=== PATIENT | female | born 1950 | race Caucasian/White ===

== ENCOUNTER 2024-07-16 10:40 | Inpatient (IN) ==
--- OUTSIDE RECORDS SUMMARY | 2024-07-16 10:46 | External Medical Summary | Summary of Care ---
Author Name Unknown Organization [facility] Address [address] [place] [address] Phone [phone] Care Team Providers Care Collections Assistant Name Role Phone Hemal Bates MD Primary Care Provider [phone] Reason for Referral * Evaluate & Treat - Unlimited Visits (Within 10 days (routine)) - Authorized Specialty Diagnoses / Procedures Referred By Aaron roberto Referred To Contact Allergy & Immunology / Allergy and Immunology Diagnoses Rash and nonspecific skin eruption Jaycee Montaño CRNP [address] [place] [address] Referral ID Status Reason Start Date Expiration Date Visits Requested Visits Authorized [id number] Authorized Specialty Services Required 07/15/2024 999 999 Question Answer Referral Priority Within 10 days (routine) [facility] should this appointment be scheduled? [facility] For what condition is the patient being referred? Anaphylaxis/Angioedema/Urticaria Reason for Visit * Reason Comments Acute Pt reports that she had a dental appointment last , had a skin graft done was started on an amoxicillin. Then on Thursday she stated get very tired and fatigued. morning pt woke and noted rash all over her body that is itchy. Pt not sure if related to the antibiotic so she stopped taking on Thu. Encounter Details Date Type Department Care Team (Late st Contact Info) Description 07/15/2024 12:00 PM EDT Office Visit Family [facility] [address] [place] [address] Jaycee Montaño CRNP [address] [place] [address] Rash and nonspecific skin eruption* Allergies Active Allergy Reactions Criticality Noted Date Comments Amoxicillin Hives High 07/15/2024 documented as of this encounter (statuses as of 07/15/2024) Medications Medication Sig Dispensed Refills Start Date End Date Status loratadine (CLARITIN) 10 MG Tablet Take 1 Tablet by mouth in the morning. Active Centrum Silver 50+Women Oral Tablet Take by mouth . Active Fluticasone Propionate 50 MCG/ACT Nasal Suspension (Flonase) Administer 2 Sprays into each nostril in the morning. 16 g 3 3 Active Additional Information Patient not taking.Reported on 07/15/2024 Neomycin-Polymyx in-HC 3.5-77250-4 Otic Solution Administer 4 Drops to affected ear(s) in the morning and 4 Drops at noon and 4 Drops before bedtime for 10 days 10 mL 1 3 Active Additional Information Patient not taking.Reported on 12/15/2023 Celecoxib 100 MG Oral Capsule (CeleBREX) Take 1 Capsule by mouth in the morning. For pain. 90 Capsule 3 3 Active Additional Information Patient not taking.Reported on 07/15/2024 hydrOXYzine HCl 10 MG Oral Tablet (Atarax)Indicati ons:Rash and nonspecific skin eruption Take 1 Tablet by mouth every 8 hours as needed for Itching. 40 Tablet 4 Active Sucralfate 1 GM Oral Tablet (Carafate) Take 1 Tablet by mouth in the morning and 1 Tablet at noon and 1 Tablet in the evening and 1 Tablet before bedtime. 07/15/20 24 [facility]continued([facility] Amoxicillin 500 MG Oral Capsule (Amoxil) TAKE 1 CAPSULE BY MOUTH THREE TIMES DAILY 21 Capsule 4 07/15/20 24 Discontinued documented as of this encounter (statuses as of 07/15/2024) Active Problems Problem Noted Date Diagnosed Date Overweight (BMI 25.0-29.9) 10/03/2022 Generalized osteoarthritis 10/03/2022 Gastroesophageal reflux disease without esophagi tis 10/02/2022 Obstructive sleep apnea 10/02/2022 Overview: Mild, patient did not elect treatment ast of 01/26/2023 due to lack of symptoms associated. Dyslipidemia 11/01/2009 Overview: Per Lipid Taxonomy. documented as of this encounter (statuses as of 07/15/2024) Resolved Problems Problem Noted Date Diagnosed Date Resolved Date Obesity, Class I, BMI 30.0-3 4.9 (see actual BMI) 10/02/2022 10/03/2022 Body mass index (BMI) of 40. 0 to 44.9 in adult 09/23/2021 10/02/2022 Overview: Per Obesity protocol History of colon polyps 08/12/201908/16 History of kidney stones 08/12/2019 General medical exam 08/28/2015 019 Pruritic intertrigo 10/30/2014 08/28/20 15 Vaginitis 05/23/2014 08/26/2019 Lumbago 10/19/2013 05/23/2014 Right flank pain 09/24/2012 10/18/2013 Dermatitis 09/24/2012 09/24/2012 Dermatitis 09/24/2012 09/02/2021 Ingrown toenail 12/17/2011 05/23/2014 Cellulitis of toe 10/21/2011 05/23/2014 Arthralgia 10/21/2011 05/23/2014 Dyspnea and respiratory abnormality 01/06/2011 08/12/2019 Overview: ICD-10 update of inactive term Deviated nasal septum 01/06/20112014 Chronic rhinitis 01/06/2011 05/23/2014 Impacted cerumen 01/06/2011 05/23/2014 Chronic otitis externa 01/06/201105/23 Chronic laryngitis 01/06/2011 4 Chronic pharyngitis 01/06/2011 08/28/20 15 Reflux esophagitis 01/06/2011 5 Cough 01/06/2011 05/23/2014 Vaginitis 09/11/2010 08/28/2015 Acute bronchitis, complicated 06/21/2010 08/28/2015 Morbid obesity due to excess calories 04/30/2010 10/02/2022 Overview: Per Obesity Protocol, #19 ICD-10 update of inactive term Acute bronchitis, complicated 11/28/2009 12/31/2009 Benign neoplasm of colon 12/15/2007 Overview: adfenomatous repeat colonosocpy in 5 yrs ADVANCE DIRECTIVE INFORMATION 10/22/2006 09/02/2021 Overview: Yes, Patient instructed to provide copy of advance directive for provider to review and to be scanned into Electronic Medical Record Calculus of kidney 09/22/2003 9 PURE HYPERCHOLESTEROLEM 09/21/200210/16 Overview: Per Lipid Taxonomy. Family history of colon cancer 09/20/2001 09/02/2021 Menopause 09/25/1999 08/26/2019 Nevus, non-neoplastic 09/25/19992020 documented as of this encounter (statuses as of 07/15/2024) Immunizations Name Administration Dates Next Due COVID-19 mRNA, LNP-s, No Pre serve, 2-Dose Series (LeadFire) 03/04/2022,09/06/2021,02/02/2021,12/18 COVID-19, MRNA-LNP, 23-24, P F, 30 MCG/0.3 mL, 12 YRS AND ABOVE, IM (Prixel-Comirnat) 10/15/2023 Covid-19, Mrna, Lnp-s, Pf, B ivalent, 30 Mcg, IM, 12 yrs and above (Pfizer) 08/21/2022 Pneumococcal Conjugate Vacc, 13 Valent (Prevnar) 08/12/2017 Pneumococcal Conjugate Vacci ne, 7 Valent 05/20/2015 Pneumococcal Polysaccharide PPV23 (Pneumovax) 11/23/2018 RSV Vac., Bivalent, Perfusio n F, Pf,0.5 Ml (Abrysvo) 11/20/2023 Season Influenza, Quad, PF, Adjuvanted, 65+ Yrs, IM (FLUAD) 08/31/2020 Seasonal Influenza, PF, 6 M & above, IM , (FluLaval or Fluzone) 11/23/2018 Seasonal Influenza, Quadriva lent Hd (Fluzone Hd) 08/14/2023,08/11/2022,08/07/2021 Seasonal Influenza, Quadriva lent, No Preserve, IM 07/29/2017,10/04/2016,08/28/2015 10/04/2017 Seasonal Influenza, Trivalen t, (IIV3), with Preserv, (Fluzone) 10/30/2014,09/29/2009 Seasonal Influenza, Trivalen t, Adjuvanted, 65+ YRS, PF, (Fluad) 08/26/2019 TD - Tetanus/Diptheria (ADULT) 11/10/2007 TDAP (age 10 and older)(Boostrix) 08/12/2017 Varicella Zoster Vaccine (Adult) 05/20/2015 Zoster Vaccine Recombinant (Shingrix) 09/24/2020 ,06/08/2020 documented as of this encounter Social History Tobacco Use Types Packs/Day Years Used Date Smoking Tobacco: Never Smokeless Tobacco: Never Alcohol Use Standard Drinks/Week Comments No 0 (1 standard drink = 0.6 oz pur e alcohol) PHQ-2 Answer Date Recorded PHQ Adult Total Score 0 08/14/2023 Hunger Vital Sign Answer Date Recorded Within the past 12 months, y ou worried that your food would run out before you got the money to buy more. Never true 08/11/20 23 Within the past 12 months, t he food you bought just didn't last and you didn't have money to get more. Never true 08/11/2023 Sex and Gender Information Value Date Recorded Sex Assigned at Female 05/28/2020 3:58 PM EDT Gender Identity Female 05/28/2020 3:58 PM EDT Sexual Orientation Straight 05/28/2020 3: 58 PM EDT Job Start Date Occupation Industry Not on file Not on file Not on file documented as of this encounter Last Filed Vital Signs Vital Sign Reading Time Taken Comments Blood Pressure 122/62 07/15/2024 11:59 AM EDT Pulse 75 07/15/2024 11:59 AM EDT Temperature 36.2 C (97.2 F) 07/15/2024 11:59 AM E DT Respiratory Rate 16 07/15/2024 11:59 AM EDT Oxygen Saturation 99% 07/15/2024 11:59 AM EDT Inhaled Oxygen Concentration - - Weight - - Height - - Body Mass Index - - documented in this encounter Progress Notes * Jaycee Montaño CRNP - 07/15/2024 12:10 PM EDT Images from the original note were not included. History of Present Illness Cristina Miguel is a 74 year old female that presents for Acute ( Pt reports that she had a dental appointment last , had a skin graft done was started on an amoxicillin. Then on Thursday she stated get very tired and fatigued. morning pt woke and noted rash all over her body that is itchy. Pt not sure if related to the antibiotic so she stopped taking on Thu.) HPI Here for itchy rash all over her body with exception of face x 2 days. She was put on amox 6 days prior after dental graft and had taken for several days before rash developed. Notes for 2 days priorto rash she was very tired and achy and not feeling well and had some genralized weakness. Woke up with rash morning. Very itchy. Was raised like hives yesterday and better today. She did not take amox yesterday or today. Denies angioedema, facial swelling, dyspnea, chest pain. Current Outpatient Medications Medication Sig Dispense Refill Centrum Silver 50+Women Oral Tablet Take by mouth . loratadine (CLARITIN) 10 MG Tablet Take 1 Tablet by mouth in the morning. Abrysvo 120 MCG/0.5ML Intramuscular Solution Reconstituted (RSV Pre-Fusion F A&B Vac [facility]) Inject IM as directed (Patient not taking: Reported on 12/15/2023) 1 Each 0 Celecoxib 100 MG Oral Capsule (CeleBREX) Take 1 Capsule by mouth in the morning. For pain. (Patientnot taking: Reported on 07/15/2024) 90 Capsule 3 Fluticasone Propionate 50 MCG/ACT Nasal Suspension (Flonase) Administer 2 Sprays into each nostril in the morning. (Patient not taking: Reported on 07/15/2024) 16 g 3 Kigwtfqr-Mibccolbh-AG 3.5-04471-2 Otic Solution Administer 4 Drops to affected ear(s) in the morning and 4 Drops at noon and 4 Drops before bedtime for 10 days (Patient not taking: Reported on 12/15/2023) 10 mL 1 No current facility-administered medications for this visit. Physical Exam Vitals: 07/15/24 1159 Temp: 36.2 C (97.2 F) Pulse: 75 Resp: 16 SpO2: 99% BP: 122/62 Physical Exam Vitals reviewed. Constitutional: General: She is not in acute distress. HENT: Head: Normocephalic and atraumatic. Nose: Nose normal. Mouth/Throat: Mouth: Mucous membranes are moist. Comments: No swelling Eyes: Extraocular Movements: Extraocular movements intact. Conjunctiva/sclera: Conjunctivae normal. Pupils: Pupils are equal, round, and reactive to light. Cardiovascular: Rate and Rhythm: Normal rate and regular rhythm. Heart sounds: Normal heart sounds. Pulmonary: Effort: Pulmonary effort is normal. Breath sounds: Normal breath sounds. Abdominal: General: Bowel sounds are normal. Palpations: Abdomen is soft. Musculoskeletal: Cervical back: Neck supple. Right lower leg: No edema. Left lower leg: No edema. Lymphadenopathy: Cervical: No cervical adenopathy. Skin: General: Skin is warm and dry. Capillary Refill: Capillary refill takes less than 2 seconds. Findings: Rash (diffuse confluent macules over arms, legs, abdomen, back, chest (photos in scans)) present. Neurological: General: No focal deficit present. Mental Status: She is alert and oriented to person, place, and time. Psychiatric: Behavior: Behavior normal. Thought Content: Thought content normal. Assessment and Plan Rash and nonspecific skin eruption Stop amox - added to allergy list Possible she had viral illness preceding rash Will have her follow up with allergy given severity of rash/hives Photo in scans Follow up 07/19 to make sure it is resolving Discussed indications for ER - hydrOXYzine HCl 10 MG Oral Tablet (Atarax); Take 1 Tablet by mouth every 8 hours as needed for Itching. - ALLERGY REFERRAL OP Wrap-Up Follow-up: Return in about 4 days (around 07/19/2024), or if symptoms worsen or fail to improve. | Check-out note: Recheck 07/19 with me Also schedule allergy Time: I spent a total of 20-29 minutes (exact time 20 mins) on the date of service in preparation, delivery, and documentation of the care provided to Cristina Miguel excluding any time spent in the performance of separately billed services. documented in this encounter Plan of Treatment Upcoming Encounters Date Type Department Care Team (Late st Contact Info) Description 07/19/2024 11:20 AM EDT Office Visit Family Practice [facility] [address] [facility] [address] Jayece Monta[facility] CR[facility] [address] [facility] [address] 07/29/2024 10:00 AM EDT Office Visit Allergy/Immunology [facility] [address] [place] [address] Ruslan Bolaños MD [address] [place] [address] [place] [address] 08/16/2024 8:30 AM EDT Nurse Only Ancillary [facility] [address] [place] [address] [facility], Nurse Annual Wellness [address] [place] [address] 10/14/2024 8:15 AM EST Office Visit Dermatology [facility] [address] [facility] [place] [address] Tj Shine MD [address] [facility] [place] [address] 06/19/2025 9:30 AM EDT Imaging Radiology [facility] 1st [facility] [address] [facility] [place] [address] Scheduled Procedures Name Priority Associated Diagnoses Date/Ti me COLONOSCOPY FLEXIBLE PROXIMA L DIAGNOSTIC Recall History of colonic polyps Scheduled Referrals Name Type Priority Associated Diagnoses Orde r Schedule ALLERGY REFERRAL OP Referral Within 10 da ys (routine) Rash and nonspecific skin eruption Ordered: 07/15/2024 Health Maintenance Due Date Last Done Comments Cologuard 1997 Fecal Occult Blood Test 1997 Sigmoidoscopy 1997 COVID-19 Vaccine ( season) 2024 10/15/2023, 08/21/2022, 03/04/2022, Additional history exists Influenza Vaccine (FLU shot) (#1) 2024 08/14/2023, 08/11/2022, 08/07/2021, Additional history exists Adult Wellness Visit 08/14/2024 08/14/2023, 08/11/2022, 08/07/2021 Depression Screening 08/14/2024 08/14/2023 Lipid Panel 08/26/2024 08/26/2019, 08/16, 12/04/2008, Additional history exists Mammogram 06/16/2025 06/16/2024, 04/18, 05/15/2023, Additional history exists Colonoscopy 12/23/2026 12/23/2023, 05/2024, 12/14/2020, Additional history exists Colorectal Cancer Screening 12/23/2026 DXA Scan 03/25/2027 03/25/2018 DTap/Tdap Vaccines (2 - Td or Tdap) 08/12/2027 08/12/2017, 11/10/2007 Pneumococcal Vaccine: 65+ Years Completed 11/23/2018, 08/12/2017 Zoster Vaccines Completed 09/24/2020, 05/17, 05/20/2015 RETIRED - COLONOSCOPY-ANNUAL AGES 18-100 Discontinued 12/23/2023, 12/23/2023, 12/14/2020, Additional history exists HPV (Gardasil) Vaccine Aged Out No lo nger eligible based on patient's age to complete this topic Hepatitis B Vaccine Aged Out No longe r eligible based on patient's age to complete this topic MENINGOCOCCAL (MENACTRA/MENVEO) Aged Out No longer eligible based on patient's age to complete this topic documented as of this encounter Medical Devices Implanted Type Area Human Resources Trainee Device Identifier Shelf Expiration Date Model / Serial / Lot Clip Quick 2.8mm 230cm - [id number] Implanted:Qty: 2 on 10/07/2019 by Sukhjinder Webster MD at [facility] [employer] 03/15/2022 [id number]-202UR.[id number] / / Hemostasis 2.8cm [id number] Clip Rotation Repositioning - [id number] Implanted:Qty: 2 on 12/23/2023 by Sukhjinder Webster MD at [facility] N/A: Colon MICRO TECH ENDOSCOPY 11/27/2024 [id number] / / [id number] documented as of this encounter Visit Diagnoses Diagnosis Rash and nonspecific skin eruption- Primary Rash and other nonspecific skin eruption documented in this encounter Advance Directives Documents on File Type Date Recorded Patient Binder Fixer Expl anation Advance Directives and Shraddha whittington Will 12/18/2005 ADVANCE DIRECTIVE Care Teams Collections Assistant Relationship Specialty Start Date End Date Hemal Bates MD [address] [place] [address] PCP - General Family Medicine 04/01/21 documented as of this encounter"
--- OUTSIDE RECORDS SUMMARY | 2024-07-16 10:46 | External Medical Summary | Summary of Care ---
Author Name Unknown Organization [facility] Address [address] [facility] [address] Phone [phone] Care Team Providers Care Operations Vice President Name Role Phone Hemal Bates MD Primary Care Provider [phone] Reason for Visit * Reason Onset Date Comments Side Effects of Medications 07/14/2024 Encounter Details Date Type Department Care Team (Late st Contact Info) Description 07/14/2024 Telephone Family Practice [facility] [address] [place] [address] Hemal Bates MD [address] [place] [address] Side Effects of Medications Allergies Active Allergy Reactions Criticality Noted Date Comments No Known Drug Allergy 09/25/2004 documented as of this encounter (statuses as of 07/14/2024) Medications Medication Sig Dispensed Refills Start Date End Date Status loratadine (CLARITIN) 10 MG Tablet Take 1 Tablet by mouth in the morning. Active Centrum Silver 50+Women Oral Tablet Take by mouth . Active Fluticasone Propionate 50 MCG/ACT Nasal Suspension (Flonase) Administer 2 Sprays into each nostril in the morning. 16 g 3 10/09/2023 Active Neomycin-Polymyxin -HC 3.5-15540-3 Otic Solution Administer 4 Drops to affected ear(s) in the morning and 4 Drops at noon and 4 Drops before bedtime for 10 days 10 mL 1 10/09/2023 Active Additional Information Patient not taking.Reported on 12/15/2023 Celecoxib 100 MG Oral Capsule (CeleBREX) Take 1 Capsule by mouth in the morning. For pain. 90 Capsule 3 10/09/2023 Active Sucralfate 1 GM Oral Tablet (Carafate) Take 1 Tablet by mouth in the morning and 1 Tablet at noon and 1 Tablet in the evening and 1 Tablet before bedtime. Active Amoxicillin 500 MG Oral Capsule (Amoxil) TAKE 1 CAPSULE BY MOUTH THREE TIMES DAILY 21 Capsule 07/07/2024 Active documented as of this encounter (statuses as of 07/14/2024) Active Problems Problem Noted Date Diagnosed Date Overweight (BMI 25.0-29.9) 10/03/2022 Generalized osteoarthritis 10/03/2022 Gastroesophageal reflux disease without esophagi tis 10/02/2022 Obstructive sleep apnea 10/02/2022 Overview: Mild, patient did not elect treatment ast of 01/26/2023 due to lack of symptoms associated. Dyslipidemia 11/01/2009 Overview: Per Lipid Taxonomy. documented as of this encounter (statuses as of 07/14/2024) Resolved Problems Problem Noted Date Diagnosed Date [...] as of this encounter (statuses as of 07/14/2024) Immunizations Name Administration Dates Next Due COVID-19 mRNA, LNP-s, No Pre serve, 2-Dose Series (bMobilized) 03/04/2022,09/06/2021,02/02/2021,12/18 COVID-19, MRNA-LNP, 23-24, P F, 30 MCG/0.3 mL, 12 YRS AND ABOVE, IM (PFIZER-Comirnaty) 10/15/2023 Covid-19, Mrna, Lnp-s, Pf, B ivalent, [...] No Preserve, IM 07/29/2017,10/04/2016,08/28/2015 10/04/2017 Seasonal Influenza, Split, I IV3, With Preserve, Inj 10/30/2014,09/29/2009 Seasonal Influenza, Trivalen t, Adjuvanted, 65+ yrs 08/26/2019 TD - Tetanus/Diptheria (ADULT) 11/10/2007 TDAP [...] on file documented as of this encounter Miscellaneous Notes * Telephone Encounter - Tamanna Pang RPh - 07/14/2024 9:15 AM EDT Pt calling with side effects from amoxicillin Amoxicillin not prescribed by PCP. Was from outside dentist. Pt developed a rash so she stopped medication. Advised pt to contact dentist to make aware that she stopped medication as they may want to prescribe something else. Also advised can try OTC hydrocortisone cream if rash is itchy or benadryl. Counseled that benadrylwill make drowsy. Pt verbalized understanding and will contact dentist. Will call back if rash gets worse for appt. Thanks, Tamanna Pang, PharmD Clinical Pharmacist [facility] [phone] 07/14/2024 9:20 AM * Telephone Encounter - Nata Toledo PHARM Tech - 07/14/2024 9:12 AM EDT Patient called in with side effects from Amoxicillin 500 MG Oral Capsule (Amoxil) . Warm transferred to [facility] for consultation. Thank you, Nata Toledo Dressage Judge I [facility] 07/14/2024,9:13 AM documented in this encounter Plan of Treatment Upcoming Encounters Date Type Department Care Team (Late st Contact Info) Description 08/16/2024 8:30 AM EDT Nurse Only Ancillary [facility] [address] [facility] [place] [address] [facility], Nurse [facility] Wellness [facility] [address] [facility] [place] [address] 10/14/2024 8:15 AM EST Office Visit Dermatology [facility] [address] [place] [address] Tj Shine MD [address] [place] [address] 06/19/2025 9:30 AM EDT Imaging Radiology [facility] 1st [facility] [address] [place] [address] Scheduled Procedures Name Priority Associated Diagnoses Date/Ti me COLONOSCOPY FLEXIBLE PROXIMA L DIAGNOSTIC Recall History of colonic polyps Health Maintenance Due Date Last Done Comments [...] this encounter Medical Devices Implanted Type Area Utility Plant Operative Device Identifier Shelf Expiration Date Model / Serial / Lot Clip Quick 2.8mm 230cm - [id number] Implanted:Qty: 2 on 10/07/2019 by Sukhjinder Webster MD at ENDOSCOPY [facility] [employer] 03/15/2022 [id number]-[id number] / / Hemostasis 2.8cm [id number] Clip Rotation Repositioning - [id number] Implanted:Qty: 2 on 12/23/2023 by Sukhjinder Webster MD at ENDOSCOPY [facility] N/A: Colon MICRO TECH ENDOSCOPY 11/27/2024 [id number] / / [id number] documented as of this encounter Advance Directives Documents on File Type Date Recorded Patient Dust Box Tender Expl anation Advance Directives and Livin g Will 12/18/2005 ADVANCE DIRECTIVE Care Teams Operations Vice President Relationship Specialty Start Date End Date Hemal Bates MD [address] [place] [address] PCP - General Family Medicine 04/01/21 documented as of this encounter
--- OUTSIDE RECORDS SUMMARY | 2024-07-16 10:46 | External Medical Summary | Summary of Care ---
Author Name Unknown Organization [facility] Address [address] [facility] [place] [address] Phone [phone] Care Team Providers Care Branch Manager Trainee Name Role Phone Hemal Bates MD Primary Care Provider [phone] [phone] Reason for Visit * Reason Onset Date Comments Side Effects of Medications 07/14/2024 Encounter Details Date Type Department Care Team (Late st Contact Info) Description 07/14/2024 Telephone Family Practice [facility] [address] [place] [address] Hemal Bates MD [address] [place] [address] Side Effects of Medications Allergies Active Allergy [...] Additional Information Patient not taking.Reported on 07/15/2024 Neomycin-Polymy alina-HC 3.5-05547-4 Otic Solution Administer 4 Drops to affected [...] Additional Information Patient not taking.Reported on 07/15/2024 Sucralfate 1 GM Oral Tablet (Carafate) Take 1 Tablet by mouth in the morning and 1 Tablet at noon and 1 Tablet in the evening and 1 Tablet before bedtime. 07/15/20 24 Discontinued([facility] List Clean Up) Amoxicillin 500 MG Oral [...] mRNA, LNP-s, No Pre serve, 2-Dose Series ([employer] 03/04/2022,09/06/2021,02/02/2021,12/18 COVID-19, MRNA-LNP, 23-24, P F, 30 MCG/0.3 mL, 12 YRS AND ABOVE, IM ([facility] 10/15/2023 Covid-19, Mrna, Lnp-s, Pf, B ivalent, 30 Mcg, IM, 12 yrs and above (Pfizer) 08/21/2022 Pneumococcal Conjugate Vacc, 13 Valent (Prevnar) 08/12/2017 Pneumococcal Conjugate Vacci ne, 7 Valent 05/20/2015 Pneumococcal Polysaccharide PPV23 (Pneumovax) 11/23/2018 RSV Vac., Bivalent, Perfusio n F, Pf,0.5 Ml (Abrysvo) 11/20/2023 Season Influenza, Quad, PF, Adjuvanted, 65+ Yrs, IM (FLUAD) 08/31/2020 Seasonal Influenza Virus Vac cine, Unspecified Formulation 09/11/1998 09/11/1999 Seasonal Influenza, PF, 6 M & above, IM , (FluLaval or Fluzone) 11/23/2018 Seasonal Influenza, Quadriva lent Hd (Fluzone Hd) 08/14/2023,08/11/2022,08/07/2021 Seasonal Influenza, Quadriva lent, No Preserve, IM 07/29/2017,10/04/2016,08/28/2015 10/04/2017 Seasonal Influenza, Trivalen t, (IIV3), with Preserv, (Fluzone) 10/30/2014,09/29/2009,09/22/2003,09/16,10/20/2001,09/12/1999 Seasonal Influenza, Trivalen t, Adjuvanted, 65+ YRS, [...] encounter Miscellaneous Notes * Telephone Encounter - Mallorie Evans RP - 07/15/2024 3:09 PM EDT Pt calling to see if she should take Hydroxyzine with food. Advised can take with out without, recommend to take with if sensitive stomach. Advised against epsom salt bath, recommended colloidal oatmeal bath. Pt states her saw her shake, not shaking now. Advised to monitor and call back if continued. Counseled patient to call back with no improvement or worsening symptoms. Thank you, Mallorie Evans, PharmD, NADINE Clinical Pharmacist [facility] 07/15/24 3:10 PM [phone] * Telephone Encounter - Tamanna Pang RP - 07/14/2024 9:15 AM EDT Pt calling [...] Clinical Pharmacist [facility]) [phone] 07/14/2024 9:20 AM * Telephone Encounter - Nata Toledo PHARM Tech - 07/14/2024 9:12 AM EDT Patient called in with side effects from Amoxicillin 500 MG Oral Capsule (Amoxil) . Warm transferred to [facility] for consultation. Thank you, Nata Toledo Death Claim Clerk I [facility]) 07/14/2024,9:13 AM documented in this encounter Plan of Treatment Upcoming Encounters Date Type Department Care Team (Late st Contact Info) Description 07/19/2024 11:20 AM EDT Office Visit Family Practice [facility] 132 [facility] [place] [address] Jaycee Montaño CRNP [facility] [address] 07/29/2024 10:00 AM EDT Office Visit Allergy/Immunology [facility] [address] [facility] [place] [address] Ruslan Bolaños MD [address] [facility] [place] [address] 08/16/2024 8:30 AM EDT Nurse Only Ancillary [facility] 132 [facility] [place] [address] Sam, Nurse Annual Wellness [facility] 132 [facility] [place] [address] 10/14/2024 8:15 AM EST Office Visit Dermatology [facility] [address] [facility] [place] [address] Tj Shine MD [address] [place] [address] 06/19/2025 9:30 AM EDT Imaging Radiology [address], [place] [address] [place] [address] Scheduled Procedures Name Priority Associated Diagnoses Date/Ti [...] this encounter Medical Devices Implanted Type Area Buggy Man Device Identifier Shelf Expiration Date Model / Serial / Lot Clip Quick 2.8mm 230cm - [id number] Implanted:Qty: 2 on 10/07/2019 by Sukhjinder Webster MD at ENDOSCOPY [facility] [employer] 03/15/2022 HX-202UR.A / / Hemostasis 2.8cm [id number] Clip Rotation Repositioning - [id number] Implanted:Qty: 2 on 12/23/2023 by Sukhjinder Webster MD at ENDOSCOPY [facility] N/A: Colon MICRO TECH ENDOSCOPY 11/27/2024 [id number] / / [id number] documented as of this encounter Advance Directives Documents on File Type Date Recorded Patient Rivet Flunky Expl anation Advance Directives and Livin g Will 12/18/2005 ADVANCE DIRECTIVE Care Teams Branch Manager Trainee Relationship Specialty Start Date End Date Hemal Bates MD [address] [place] [address] PCP - General Family Medicine 04/01/21 documented as of this encounter
--- OUTSIDE RECORDS SUMMARY | 2024-07-16 10:46 | External Medical Summary | Summary of Care ---
Author Name Unknown Organization [facility] Address [address] [facility] [place] [address] Phone [phone] Care Team Providers Care Food Writer Name Role Phone Hemal Bates MD Primary Care Provider [phone] Reason for Visit * Reason Onset Date Comments Other 02/03/2024 Encounter Details Date Type Department Care Team (Late st Contact Info) Description 02/03/2024 Telephone Family Practice [facility] [address] [place] [address] Hemal Bates MD [address] [place] [id number] Other Allergies Active Allergy Reactions Criticality Noted Date Comments No Known Drug Allergy 09/25/2004 documented as of this encounter (statuses as of 02/03/2024) Medications Medication Sig Dispensed Refills Start Date End Date Status loratadine (CLARITIN) 10 MG Tablet Take 1 Tablet by mouth in the morning. 0 Active Centrum Silver 50+Women Oral Tablet Take by mouth . 0 Active Fluticasone Propionate 50 MCG/ACT Nasal Suspension (Flonase) Administer 2 Sprays into each nostril in the morning. 16 g 3 10/09/2023 Active Neomycin-Polymyxin -HC 3.5-26366-7 Otic Solution Administer 4 Drops to affected [...] the evening and 1 Tablet before bedtime. 0 Active documented as of this encounter (statuses as of 02/03/2024) Active Problems Problem Noted Date Diagnosed Date Overweight (BMI 25.0-29.9) 10/03/2022 Generalized osteoarthritis 10/03/2022 Gastroesophageal reflux disease without esophagi tis 10/02/2022 Obstructive sleep apnea 10/02/2022 Overview: Mild, patient did not elect treatment ast of 01/26/2023 due to lack of symptoms associated. Dyslipidemia 11/01/2009 Overview: Per Lipid Taxonomy. documented as of this encounter (statuses as of 02/03/2024) Resolved Problems Problem Noted Date Diagnosed Date [...] as of this encounter (statuses as of 02/03/2024) Immunizations Name Administration Dates Next Due COVID-19 mRNA, LNP-s, No Pre serve, 2-Dose Series ([employer]) 03/04/2022,09/06/2021,02/02/2021,12/18 COVID-19, MRNA-LNP, 23-24, P F, 30 [...] encounter Miscellaneous Notes * Telephone Encounter - Shanti Echols OSA - 02/03/2024 12:52 PM EDT Pt would like all images from 10-09-2023 (x-ray) put on a CD and she will pick it up. She is going to a chiro 01-11. They would also like the reports. Please call when done documented in this encounter Plan of Treatment Upcoming Encounters Date Type Department Care Team (Late st Contact Info) Description 06/16/2024 9:00 AM EDT Imaging Radiology [facility] [address] [place] [address] 08/16/2024 8:30 AM EDT Nurse Only Ancillary [address] [place] [address] [facility], Nurse Annual Wellness [address] [place] [address] 10/14/2024 8:15 AM EST Office Visit Dermatology [facility] 200 [facility] [place] [address] Tj Shine MD 200 [facility] [place] [address] Scheduled Procedures Name Priority Associated Diagnoses Date/Ti me COLONOSCOPY FLEXIBLE PROXIMA L DIAGNOSTIC Recall History of colonic polyps Health Maintenance Due Date Last Done Comments Mammogram 05/15/2024 05/15/2023, 10/16, 05/14/2022, Additional history exists Depression Screening 08/14/2024 08/14/2023 Lipid Panel 08/26/2024 08/26/2019, 08/16, 12/04/2008, Additional history exists COLONOSCOPY-EVERY 3 YRS AGES 18-100 12/23/2026 12/23/2023, 12/23/2023, 12/14/2020, Additional history exists DXA Scan 03/25/2027 03/25/2018 DTaP,Tdap,and Td Vaccines (2 - Td or Tdap) 08/12/2027 08/12/2017, 11/10/2007 Pneumococcal Vaccine: 65+ Years Completed 11/23/2018, 08/12/2017 Zoster Vaccines Completed 09/24/2020, 05/17, 05/20/2015 Influenza Vaccine (FLU shot) Completed 08/14/2023, 08/11/2022, 08/07/2021, Additional history exists COVID-19 Vaccine Completed 10/15/2023, 04/2022, 03/04/2022, Additional history exists COLONOSCOPY-ANNUAL AGES 18-100 Discontinued 12/23/2023, 12/23/2023, 12/14/2020, Additional history exists GARDASIL-HPV IMMUNIZATION SERIES Aged Out No longer eligible based on patient's age to complete this topic Hepatitis B Aged Out No longer eligi ble based on patient's age to complete this topic MENINGOCOCCAL (MENACTRA/MENVEO) Aged Out No longer eligible based on patient's age to complete this topic documented as of this encounter Medical Devices Implanted Type Area Uniform Maker Device Identifier Shelf Expiration Date Model / Serial / Lot Clip Quick 2.8mm 230cm - [id number] Implanted:Qty: 2 on 10/07/2019 by Sukhjinder Webster MD at ENDOSCOPY [facility] [employer] 03/15/2022 HX-202UR.A / / Hemostasis 2.8cm [id number] Clip Rotation Repositioning - [id number] Implanted:Qty: 2 on 12/23/2023 by Sukhjinder Webster MD at ENDOSCOPY [facility] N/A: Colon MICRO TECH ENDOSCOPY 11/27/2024 [id number] / / [id number] documented as of this encounter Advance Directives Documents on File Type Date Recorded Patient Risk Control Manager Expl anation Advance Directives and Livin g Will 12/18/2005 ADVANCE DIRECTIVE Care Teams Food Writer Relationship Specialty Start Date End Date Hemal Bates MD [address] [place] [address] PCP - General Family Medicine 04/01/21 documented as of this encounter
--- OUTSIDE RECORDS SUMMARY | 2024-07-16 10:46 | External Medical Summary | Summary of Care ---
Author Name Unknown Organization [facility] Address [address] [facility] [place] [address] Phone [phone] Care Team Providers Care Bilingual Interpreter Name Role Phone Hemal Bates MD Primary Care Provider [phone] Reason for Visit * Reason Onset Date Comments Other 02/03/2024 Encounter Details Date Type Department Care Team (Late st Contact Info) Description 02/03/2024 Telephone Family Practice [facility] [address] [place] [address] Hemal Bates MD [address] [place] [id number] Other Allergies Active Allergy Reactions Criticality Noted Date Comments No Known Drug Allergy 09/25/2004 documented as of this encounter (statuses as of 02/04/2024) Medications Medication Sig Dispensed Refills Start Date End Date Status loratadine (CLARITIN) 10 MG Tablet Take 1 Tablet by mouth in the morning. 0 Active Centrum Silver 50+Women Oral Tablet Take by mouth . 0 Active Fluticasone Propionate 50 MCG/ACT Nasal Suspension (Flonase) Administer 2 Sprays into each nostril in the morning. 16 g 3 10/09/2023 Active Neomycin-Polymyxin -HC 3.5-24064-7 Otic Solution Administer 4 Drops to affected [...] as of this encounter (statuses as of 02/04/2024) Active Problems Problem Noted Date Diagnosed Date Overweight (BMI 25.0-29.9) 10/03/2022 Generalized osteoarthritis 10/03/2022 Gastroesophageal reflux disease without esophagi tis 10/02/2022 Obstructive sleep apnea 10/02/2022 Overview: Mild, patient did not elect treatment ast of 01/26/2023 due to lack of symptoms associated. Dyslipidemia 11/01/2009 Overview: Per Lipid Taxonomy. documented as of this encounter (statuses as of 02/04/2024) Resolved Problems Problem Noted Date Diagnosed Date [...] as of this encounter (statuses as of 02/04/2024) Immunizations Name Administration Dates Next Due COVID-19 mRNA, LNP-s, No Pre serve, 2-Dose Series ([employer]) 03/04/2022,09/06/2021,02/02/2021,12/18 COVID-19, MRNA-LNP, 23-24, P F, 30 [...] Influenza, Split, I IV3, With Preserve, Inj 10/30/2014,09/29/2009,09/22/2003,09/16,10/20/2001,09/12/1999 Seasonal Influenza, Trivalen t, Adjuvanted, 65+ yrs [...] encounter Miscellaneous Notes * Telephone Encounter - Cayla Gordillo OSA - 02/04/2024 3:44 PM EDT Disc(s) with imaging and reports prepared per request and placed at the [facility] Radiology/Family Practice [employer]. Patient notified via voicemail that the information is ready for pickup and can do so Mon-Fri from 8 am to 5 pm. Patient Right of Access form ready for signature at time of pickup. * Telephone Encounter - Shanti Echols OSA [...] Description 06/16/2024 9:00 AM EDT Imaging Radiology [facility] 1st Floor, [place] 132 [facility] [place] [address] 08/16/2024 8:30 AM EDT Nurse Only Ancillary [facility] 132 [facility] [place] [address] [facility], Nurse Annual Wellness [address] [place] [address] 10/14/2024 8:15 AM EST Office Visit Dermatology [facility] [address] [place] [address] Tj Shine MD [address] [place] [address] Scheduled Procedures Name Priority Associated Diagnoses Date/Ti [...] this encounter Medical Devices Implanted Type Area Dental Claims Processor Device Identifier Shelf Expiration Date Model / Serial / Lot Clip Quick 2.8mm 230cm - [id number] Implanted:Qty: 2 on 10/07/2019 by Sukhjinder Webster MD at ENDOSCOPY [facility] [employer] 03/15/2022 HX-202UR.A / / Hemostasis 2.8cm [id number] Clip Rotation Repositioning - [id number] Implanted:Qty: 2 on 12/23/2023 by Sukhjinder Webster MD at ENDOSCOPY [facility] N/A: Colon MICRO TECH ENDOSCOPY 11/27/2024 [id number] / / [id number] documented as of this encounter Advance Directives Documents on File Type Date Recorded Patient Order Clerk Expl anation Advance Directives and Livin g Will 12/18/2005 ADVANCE DIRECTIVE Care Teams Bilingual Interpreter Relationship Specialty Start Date End Date Hemal Bates MD [address] [place] [address] PCP - General Family Medicine 04/01/21 documented as of this encounter
--- OUTSIDE RECORDS SUMMARY | 2024-07-16 10:46 | External Medical Summary | Summary of Care ---
Author Name Unknown Organization [facility] Address [address] [facility] [place] [address] Phone [phone] Care Team Providers Care Accounting Director Name Role Phone Hemal Bates MD Primary Care Provider [phone] [phone] Reason for Visit * Reason Onset Date Comments Other 02/03/2024 Encounter Details Date Type Department Care Team (Late st Contact Info) Description 02/03/2024 Telephone Family Practice [facility] [address] [place] [address] Hemal Bates MD [address] [place] [phone] Other Allergies Active Allergy Reactions Criticality Noted [...] 16 g 3 10/09/2023 Active Neomycin-Polymyxin -HC 3.5-03018-8 Otic Solution Administer 4 Drops to affected [...] mRNA, LNP-s, No Pre serve, 2-Dose Series ([employer]) 03/04/2022,09/06/2021,02/02/2021,12/18 COVID-19, MRNA-LNP, 23-24, P F, 30 [...] Gordillo OSA - 02/04/2024 3:44 PM EDT Left voicemail with my direct line phone number ([phone]) and message to please return call jonathan scheduled. * Telephone Encounter - Shanti Echols OSA [...] Description 06/16/2024 9:00 AM EDT Imaging [facility] 132 [facility] [place] [address] 08/16/2024 8:30 AM EDT [facility] 132 [facility] [place] [address] Sam Nurse Annual Wellness [address] [place] [address] 10/14/2024 8:15 AM EST Office [facility] [address] [place] [address] Tj Shine MD [address] [place] [address] [place] [address] Scheduled Procedures Name Priority Associated Diagnoses Date/Ti [...] this encounter Medical Devices Implanted Type Area Customer Service Administrator Device Identifier Shelf Expiration Date Model / Serial / Lot Clip Quick 2.8mm 230cm - [id number] Implanted:Qty: 2 on 10/07/2019 by Sukhjinder Webster MD at ENDOSCOPY [facility] [email or web address] [facility] 03/15/2022 HX-202UR.A / / Hemostasis 2.8cm [id number] Clip Rotation Repositioning - [id number] Implanted:Qty: 2 on 12/23/2023 by Sukhjinder Webster MD at ENDOSCOPY [facility] N/A: Colon MICRO TECH ENDOSCOPY 11/27/2024 [id number] / / [id number] documented as of this encounter Advance Directives Documents on File Type Date Recorded Patient Systems Planner Expl anation Advance Directives and Livin g Will 12/18/2005 ADVANCE DIRECTIVE Care Teams Accounting Director Relationship Specialty Start Date End Date Hemal Bates MD [address] [place] [address] PCP - General Family Medicine 04/01/21 documented as of this encounter
[2024-07-16 11:34] LABS: Hematocrit (blood only) 40.6 % (37.0-47.0); Hemoglobin 14.1 g/dl (12.0-16.0); Mean Corpuscular Hemoglobin 29.4 pg (25.0-34.0); Mean Corpuscular Hgb Conc 34.7 g/dL (32.0-36.0); Mean Corpuscular Volume 84.6 fL (80.0-100.0); Platelet Count 217 K/uL (130-400); RDW Coefficient of Variation 12.3 % (11.5-14.5); RDW Standard Deviation 38.3 fL (36.4-46.3); White Blood Count 7.47 K/ul (4.8-10.8)
--- NOTE | 2024-07-16 11:41 | CT Scan Report ---
CT OF THE HEAD WITHOUT CONTRAST CLINICAL HISTORY: Confusion. COMPARISON STUDY: No previous studies for comparison. CT DOSE: 875.56 mGy.cm TECHNIQUE: Helical axial images of the head were obtained without IV contrast. Automated exposure con trol was utilized for the study. A dose lowering technique was utilized adhering to the principles o f ALARA. FINDINGS: No acute intracranial hemorrhage, midline shift or mass effect is present. The ventricular system is unremarkable. The basal cisterns are patent. No extra-axial collections are present. There are no findings to suggest acute dural sinus thrombosis or acute territorial infarct. No significant calvarial abnormalities are present. Visualized portions of the sinuses and mastoid air cells are isac ar. IMPRESSION: No acute intracranial findings. ACT 112: Negative or not required by law. Electronically signed by: Denton Espinosa M.D. 07/16/2024 11:39 AM
[2024-07-16 11:48] LABS: Alanine Aminotransferase 15 U/L (7-52); Albumin Globulin Ratio 1.3 (0.9-2); Albumin Level 4.2 gm/dl (3.4-5.0); Alkaline Phosphatase 48 U/L (34-104); Anion Gap 10 (3-11); Aspartate Aminotransferase 28 U/L (13-39); BUN Creatinine Ratio 22.2 (10-20); Bilirubin,Total 0.8 mg/dl (0.2-1.0); Blood Urea Nitrogen 22 mg/dl (6-23); Calcium 9.4 mg/dl (8.6-10.3); Carbon Dioxide 24 mmol/L (21-32); Chloride 103 mmol/L (98-107); Est GFR (Non-African American) 56.9 ml/min; Globulin 3.2 gm/dl (2.5-4.0); Glucose 94 mg/dl (70-99(Fasting)); Potassium 3.5 mmol/L (3.5-5.1); Sodium 137 mmol/L (136-145); Total Protein 7.4 gm/dl (6.0-8.3)
[2024-07-16 11:54] LABS: Basophils # (auto) 0.03 K/uL (0.00-0.20); Basophils % (auto) 0.4 %; Eosinophils # (auto) 0.21 K/uL (0.00-0.50); Eosinophils % (auto) 2.8 %; Immature Granulocytes # (auto) 0.01 K/uL (0.01-0.20); Immature Granulocytes % (auto) 0.1 %; Lymphocytes # (auto) 2.46 K/uL (1.20-3.40); Lymphocytes % (auto) 32.9 %; Monocytes # (auto) 0.53 K/uL (0.11-0.59); Monocytes % (auto) 7.1 %; Neutrophils # (auto) 4.23 K/uL (1.40-6.50); Neutrophils % (auto) 56.7 %; Troponin I High Sensitivity 27.1 pg/ml (0-14)
[2024-07-16 12:01] LABS: Partial Thromboplastin Time 28 Seconds (21-31)
--- NOTE | 2024-07-16 12:40 | Emergency Department Note ---
Impression & Plan Confusion, Elevated troponin ED Provider Note NAME: MARQUISE MORSE AGE: 74 SEX: F : 1950 ARRIVES VIA: Walk-In INFORMANT: Patient, ED PROVIDER(S): Andrew Meyer MD CHIEF COMPLAINT: Confusion HPI: This is a 74-year-old female presented for confusion. Patient is brought in by her and daughter. Patient states that she recently had a skin graft in her mouthand amoxicillin. She began having rash over the past few days. She stopped taking the amoxicillin patient is given 1 pill of hydroxyzine yesterday by her PCP. noted that over the past 1 day she is also been having slight confusion, lethargy. Yesterday she was on her laptop that was turned off. She is tempted to use a laptop despite being off and was frustrated that it was not working. She thought it was on. Otherwise she is not saying things that are not there as per family. ROS: See above HPI for pertinent positives & negatives. A total of 10 systems reviewed and were otherwise negative. PAST MEDICAL HISTORY: See Below PAST SURGICAL HISTORY: See Below FAMILY HISTORY: See Below SOCIAL HISTORY: See Below HOME MEDICATIONS: See Below ALLERGIES: See Below VITALS: See Below PHYSICAL EXAMINATION: General: resting comfortably in no acute distress Head: Normocephalic and atraumatic Eyes: Normal inspection, extraocular muscles intact Ear, nose, throat: Normal external exam Neck: Normal range of motion Respiratory: lungs clear to auscultation bilaterally Cardiovascular: Regular rate/rhythm, no murmur GI: soft, nontender, no guarding or rebound Extremities: nontender, moves all extremities Neuro: The patient awake and alert, appropriately conversive, no focal deficits, symmetric faces Skin: Warm, dry, and intact MEDICAL DECISION MAKING: This is 74-year-old female presenting for confusion. Patient overall has no current neurologic deficits. She is alert and oriented but family states she is confused at the things that are not there. Otherwise she has no blood thinner use. Reports no dysuria. -Bloodwork is reviewed showing no significant leukocytosis, anemia, electrolyte or creatinine abnormality -Patient's troponin is elevated at 27.1 with unclear etiology. -Urinalysis does not appear signs of UTI. -Overall patient has reassuring workup aside from troponin elevation without significant EKG changes. Patient is still confused at this time, will require admission for further workup and workup of her troponin -Patient admitted under Dr. Jara's service Differential diagnosis: UTI, ACS, rash, anticholinergic toxicity ER treatment provided: See below Independent History obtained from: Son and daughter Diagnostics interpreted by me: ECG: ECG independently interpreted by me with normal sinus rhythm, rate of 72, normal axis, normal WA, normal QRS, normal QTc, no ST segment elevations consistent with STEMI criteria Cardiac Monitoring: An order was placed for continuous cardiac monitoring. The monitor shows a rate of 65 with sinus rhythm. Laboratory studies: As stated above and show below. Imaging studies: See below. Past Med/Surg History Problem List (Updated 07/16/24 @ 18:45 by Andrew Meyer MD) Confusion (Acute) Elevated troponin (Acute) Adverse drug reaction GERD without esophagitis Dyslipidemia Obstructive sleep apnea Medical History Nephrolithiasis Benign neoplasm of colon Generalized osteoarthritis Surgical History History of section History of tonsillectomy History of cholecystectomy History of colonoscopy Family History Other Breast cancer Colorectal cancer Social History (Updated 07/16/24 @ 14:47 by Tamanna Patel PA-C) Smoking Status: Never smoker Hx Alcohol Use: No Hx Substance Use: No Preferred Language: Moroccan Communication Ability: Effective Private Duty Lpn Required: No Beliefs That Will Affect Care: None Current Living Situation: Spouse Feels Safe at Home: Yes Safety Concerns: Feels Safe At This Time Assistive Devices: Glasses Allergies Allergies Allergy/AdvReac Type Severity Reaction Status Date / Time amoxicillin Allergy Severe Rash Verified 07/16/24 14:51 hydroxyzine Allergy Severe Confusion Verified 07/16/24 14:51 [id number] Allergy Unknown Uncoded 12/29/02 19:02 N Allergy Unknown Uncoded 12/29/02 19:02 Home Meds Home Medications Medication Instructions Recorded Confirmed hydroxyzine HCl 10 mg tablet 10 mg PO Q8H PRN Itching 07/16/24 07/16/24 loratadine 10 mg tablet 10 mg PO DAILY 07/16/24 07/16/24 prhozpsn-duhk-vkuo 8 mg-folic 400 1 tab PO DAILY 07/16/24 07/16/24 mcg-K 50 mcg-lutein 300 mcg tablet (Centrum Silver Women) Results & Data (ED) Vital Signs Vital Signs - 24 hr 07/16/24 10:45 07/16/24 12:04 07/16/24 12:04 Temperature 36.6 C Temperature Source Temporal Artery Scan Pulse Rate 72 Pulse Rate [Apical] 68 Respiratory Rate 18 14 Respiratory Effort / Characteristics Non-Labored Spontaneous Respiratory Depth Normal Blood Pressure 153/77 H Blood Pressure [Left Arm] 172/103 H Blood Pressure Mean 102 Blood Pressure Mean [Left Arm] 126 Blood Pressure Position Sitting Pulse Oximetry 100 100 Oxygen Delivery Method Room Air Room Air Room Air Sepsis Recent Fever Within 48 Hours No Sepsis New/Unexplained Change in Mental Status No Sepsis Action Taken by Nursing No Action Required 07/16/24 12:37 07/16/24 13:28 Temperature Temperature Source Pulse Rate 68 Pulse Rate [Apical] 71 Respiratory Rate 20 Respiratory Effort / Characteristics Respiratory Depth Blood Pressure Blood Pressure [Left Arm] 151/110 H Blood Pressure Mean Blood Pressure Mean [Left Arm] 123 Blood Pressure Position Pulse Oximetry 98 Oxygen Delivery Method Room Air Sepsis Recent Fever Within 48 Hours Sepsis New/Unexplained Change in Mental Status Sepsis Action Taken by Nursing Laboratory Data 07/16/24 11:18 07/16/24 11:18 Lab Results 07/16/24 07/16/24 07/16/24 Range/Units 11:18 12:40 13:18 WBC 7.47 (4.8-10.8) K/ul RBC 4.80 (4.20-5.40) M/uL Hgb 14.1 (12.0-16.0) g/dl Hct 40.6 (37.0-47.0) % MCV 84.6 (80.0-100.0) fL MCH 29.4 (25.0-34.0) pg MCHC 34.7 (32.0-36.0) g/dL RDW Std Deviation 38.3 (36.4-46.3) fL RDW Coeff of Hugh 12.3 (11.5-14.5) % Plt Count 217 (130-400) K/uL MPV 11.0 (9.4-12.4) fL Immature Gran % (Auto) 0.1 % Neut % (Auto) 56.7 % Lymph % (Auto) 32.9 % [place] % (Auto) 7.1 % Eos % (Auto) 2.8 % Baso % (Auto) 0.4 % Neut # (Auto) 4.23 (1.40-6.50) K/uL Lymph # (Auto) 2.46 (1.20-3.40) K/uL [place] # (Auto) 0.53 (0.11-0.59) K/uL Eos # (Auto) 0.21 (0.00-0.50) K/uL Baso # (Auto) 0.03 (0.00-0.20) K/uL Immature Gran # (Auto) 0.01 (0.01-0.20) K/uL PT 11.0 (9.0-12.0) Seconds INR 1.0 (0.9-1.1) APTT 28 (21-31) Seconds PTT Ratio 1.0 Sodium 137 (136-145) mmol/L Potassium 3.5 (3.5-5.1) mmol/L Chloride 103 (98-107) mmol/L Carbon Dioxide 24 (21-32) mmol/L Anion Gap 10 (3-11) BUN 22 (6-23) mg/dl Creatinine 0.99 (0.6-1.2) mg/dl Est Cr Clr Drug Dosing Not Reportable Est GFR ( Amer) 66.0 ml/min Est GFR (Non-Af Amer) 56.9 ml/min BUN/Creatinine Ratio 22.2 H (10-20) Glucose 94 (70-99(Fasting)) mg/dl Calcium 9.4 (8.6-10.3) mg/dl Total Bilirubin 0.8 (0.2-1.0) mg/dl AST 28 (13-39) U/L ALT 15 (7-52) U/L Alkaline Phosphatase 48 (34-104) U/L Total Creatine Kinase 704 H (26-192) U/L Troponin I High Sens 27.1 H 24.9 H (0-14) pg/ml Total Protein 7.4 (6.0-8.3) gm/dl Albumin 4.2 (3.4-5.0) gm/dl Globulin 3.2 (2.5-4.0) gm/dl Albumin/Globulin Ratio 1.3 (0.9-2) Urine Color Yellow Urine Appearance Clear (Clear) Urine pH 5.5 (4.5-7.5) Ur Specific [place] 1.019 (1.000-1.030) Urine Protein Negative (Negative) Urine Glucose (UA) Negative (Negative) Urine Ketones 2+ H (Negative) Urine Blood Negative (Negative) Urine Nitrite Negative (Negative) Urine Bilirubin Negative (Negative) Urine Urobilinogen Negative (Negative) Ur Leukocyte Esterase Negative (Negative) Administered Medications Sodium Chloride (Nss) 1,000 mls @ 75 mls/hr IV .[id number] TONG Stop: 07/17/24 17:24 Last Admin: 07/16/24 15:19 Dose: 75 mls/hr Documented By: LENA Discontinued Medications Famotidine (Famotidine 20 Mg Tab) 20 mg PO NOW STA Stop: 07/16/24 14:36 Last Admin: 07/16/24 15:19 Dose: 20 mg Documented By: LENA Prednisone (Prednisone 20 Mg Tab) 40 mg PO NOW STA Stop: 07/16/24 14:46 Last Admin: 07/16/24 15:19 Dose: 40 mg Documented By: LENA Imaging Data Radiologist's Impression: Head CT 07/16/24 10:52 CT OF THE HEAD WITHOUT CONTRAST CLINICAL HISTORY: Confusion. COMPARISON STUDY: No previous studies for comparison. CT DOSE: 875.56 mGy.cm TECHNIQUE: Helical axial images of the head were obtained without IV contrast. Automated exposure control was utilized for the study. A dose lowering technique was utilized adhering to the principles of ALARA. FINDINGS: No acute intracranial hemorrhage, midline shift or mass effect is present. The ventricular system is unremarkable. The basal cisterns are patent. No extra-axial collections are present. There are no findings to suggest acute dural sinus thrombosis or acute territorial infarct. No significant calvarial abnormalities are present. Visualized portions of the sinuses and mastoid air cells are clear. IMPRESSION: No acute intracranial findings. ACT 112: Negative or not required by law. Electronically signed by: Denton Espinosa M.D. 07/16/2024 11:39 AM Discharge Plan Visit Data Chief Complaint: Confusion Stated Complaint: REACTION TO ANTIBIOTIC, RASH, AMD ED Provider: Andrew Meyer Discharge Problem: Confusion, Elevated troponin Patient Disposition: Admitted As Inpatient Discharge Instructions Interventions: ED Discharge Assessment Last Done: 07/16/24 17:26
[2024-07-16 12:57] LABS: Appearance Urine Clear (Clear); Bilirubin Urine Negative (Negative); Blood Urine Negative (Negative); Color Urine Yellow; Glucose Urine UA Negative (Negative); Ketones Urine 2+ (Negative); Leukocyte Esterase Urine Negative (Negative); Nitrite Urine Negative (Negative); Protein Urine Negative (Negative); Specific Gravity Urine 1.019 (1.000-1.030); Urobilinogen Urine Negative (Negative); pH Urine 5.5 (4.5-7.5)
[2024-07-16 13:54] LABS: Troponin I High Sensitivity 24.9 pg/ml (0-14)
--- NOTE | 2024-07-16 14:01 | History & Physical Report ---
Date of Service July 16, 2024 Assessment & Plan (1) Confusion: Plan: This is a 74 y/o female with BRY, dyslipidemia, GERD, and arthritis who presented to the ED today with confusion. Work-up in the ED showed negative CT head, labs without significant abnormality to explain her confusion. UA negative other than 2+ ketones. Symptoms seem to correlate with first dose of hydroxyzine yesterday that was given because of an adverse drug reaction due to amoxicillin. - Admit to med telemetry - STOP hydroxyzine, add hydroxyzine and amoxicillin to patient's allergy list. Pt will need to f/u with wax room supervisor as an outpatient - pt and family are aware, referral has already been placed by PCP. - Labs in the AM - CBC, BMP - PT/OT evaluations - Fall precautions until confusion improves and patient more steady - Gentle IVF - Soft diet for now due to recent skin graft on lip (2) Adverse drug reaction: Plan: Reaction to both amoxicillin and hydroxyzine - add to allergy list Calamine lotion prn for itching Prednisone 40 mg daily - first dose now. Pt has tolerated previously Famotidine 20 mg BID (3) Elevated troponin: Plan: Suspect demand - repeat troponin is flat. EKG reviewed and without ischemic changes. Plan Pt seen and reviewed with collaborating physician, Dr. Jara. Plan of care discussed and as outlined above. Code status: Full code DVT Prophylaxis: Lovenox Admit to med telemetry due to elevated troponin. Kenia Patel PA-C History of Present Illness Chief Complaint: confusion Primary Care Provider: Hemal Bates MD This is a 74 y/o female with BRY, dyslipidemia, GERD, and arthritis who presented to the ED today with confusion. Pt underwent a skin graft of her lip on , 07/07, and was given amoxicillin to take after the procedure. within a few days she developed some weakness and fatigue. Then around 07/14, as she was finishing the course of antibiotics, she developed a significant rash all over her body with associated pruritus. On 07/15, she saw her PCP office who attributed the rash to the amoxicillin and prescribed her hydroxyzine for the itching. She took her first dose around 2:30 pm yesterday. Her reports that by 3:30/4:00 pm, she had developed confusion and was very shaky, which is unusual for her. He reports that patient thought she was working on her laptop even though the computer was off, seemed to be hallucinating. She seemed to get a little better so he went to work as scheduled last evening but we he got home around 3 am, he found the patient on the floor, without her pajama pants, having gone to the bathroom on the floor and being unable to get back up. Pt reports that she had gotten very dizzy and thinks that she had lowered herself to the floor to try to help alleviate the sensation but then was too weak to get back up. This morning, she continued to be confused so family called her PCP office who referred her to the ED for evaluation. Patient denies chest pain, palpitations, dyspnea, dysphagia, fevers. Both patient and her report that rash does seem somewhat better today though still present. They do not recall patient taking Benadryl previous. She does take loratadine daily and has never had an issue with this. Allergies Allergy/AdvReac Type Severity Reaction Status Date / Time amoxicillin Allergy Severe Rash Verified 07/16/24 14:51 hydroxyzine Allergy Severe Confusion Verified 07/16/24 14:51 [id number] Allergy Unknown Uncoded 12/29/02 19:02 N Allergy Unknown Uncoded 12/29/02 19:02 Home Medications Medication Instructions Recorded Confirmed Type hydroxyzine HCl 10 mg tablet 10 mg PO Q8H PRN Itching 07/16/24 07/16/24 History loratadine 10 mg tablet 10 mg PO DAILY 07/16/24 07/16/24 History jkueyibo-noev-xlpr 8 mg-folic 400 1 tab PO DAILY 07/16/24 07/16/24 History mcg-K 50 mcg-lutein 300 mcg tablet (Centrum Silver Women) Past Med/Surg History Problem List (Updated 07/16/24 @ 14:49 by Tamanna Patel PA-C) Confusion Elevated troponin Adverse drug reaction GERD without esophagitis Dyslipidemia Obstructive sleep apnea Medical History Nephrolithiasis Benign neoplasm of colon Generalized osteoarthritis Surgical History History of section History of tonsillectomy History of cholecystectomy History of colonoscopy Family History Other Breast cancer Colorectal cancer Social History (Updated 07/16/24 @ 14:47 by Tamanna Patel PA-C) Smoking Status: Former smoker Hx Alcohol Use: No Hx Substance Use: No Preferred Language: Mongolian Current Living Situation: Spouse Feels Safe at Home: Yes Review of Systems Review of Systems: All systems reviewed & are unremarkable except as noted in Subjective Physical Exam Physical Exam: Please see physician note for details of the physical exam. Results & Data Results & Data Vital Signs (Past 12 Hours) Vital Signs Temp Pulse Pulse Resp BP BP Pulse Ox 07/16/24 13:28 71 20 151/110 H 98 07/16/24 12:37 68 07/16/24 12:04 68 14 172/103 H 100 07/16/24 12:04 07/16/24 10:45 36.6 C 72 18 153/77 H 100 O2 Del Method 07/16/24 13:28 Room Air 07/16/24 12:37 07/16/24 12:04 Room Air 07/16/24 12:04 Room Air 07/16/24 10:45 Room Air Laboratory Results Lab Results 07/16/24 07/16/24 07/16/24 Range/Units 11:18 12:40 13:18 WBC 7.47 (4.8-10.8) K/ul RBC 4.80 (4.20-5.40) M/uL Hgb 14.1 (12.0-16.0) g/dl Hct 40.6 (37.0-47.0) % MCV 84.6 (80.0-100.0) fL MCH 29.4 (25.0-34.0) pg MCHC 34.7 (32.0-36.0) g/dL RDW Std Deviation 38.3 (36.4-46.3) fL RDW Coeff of Hugh 12.3 (11.5-14.5) % Plt Count 217 (130-400) K/uL MPV 11.0 (9.4-12.4) fL Immature Gran % (Auto) 0.1 % Neut % (Auto) 56.7 % Lymph % (Auto) 32.9 % [place] % (Auto) 7.1 % Eos % (Auto) 2.8 % Baso % (Auto) 0.4 % Neut # (Auto) 4.23 (1.40-6.50) K/uL Lymph # (Auto) 2.46 (1.20-3.40) K/uL [place] # (Auto) 0.53 (0.11-0.59) K/uL Eos # (Auto) 0.21 (0.00-0.50) K/uL Baso # (Auto) 0.03 (0.00-0.20) K/uL Immature Gran # (Auto) 0.01 (0.01-0.20) K/uL PT 11.0 (9.0-12.0) Seconds INR 1.0 (0.9-1.1) APTT 28 (21-31) Seconds PTT Ratio 1.0 Sodium 137 (136-145) mmol/L Potassium 3.5 (3.5-5.1) mmol/L Chloride 103 (98-107) mmol/L Carbon Dioxide 24 (21-32) mmol/L Anion Gap 10 (3-11) BUN 22 (6-23) mg/dl Creatinine 0.99 (0.6-1.2) mg/dl Est Cr Clr Drug Dosing Not Reportable Est GFR ( Amer) 66.0 ml/min Est GFR (Non-Af Amer) 56.9 ml/min BUN/Creatinine Ratio 22.2 H (10-20) Glucose 94 (70-99(Fasting)) mg/dl Calcium 9.4 (8.6-10.3) mg/dl Total Bilirubin 0.8 (0.2-1.0) mg/dl AST 28 (13-39) U/L ALT 15 (7-52) U/L Alkaline Phosphatase 48 (34-104) U/L Troponin I High Sens 27.1 H 24.9 H (0-14) pg/ml Total Protein 7.4 (6.0-8.3) gm/dl Albumin 4.2 (3.4-5.0) gm/dl Globulin 3.2 (2.5-4.0) gm/dl Albumin/Globulin Ratio 1.3 (0.9-2) Urine Color Yellow Urine Appearance Clear (Clear) Urine pH 5.5 (4.5-7.5) Ur Specific [place] 1.019 (1.000-1.030) Urine Protein Negative (Negative) Urine Glucose (UA) Negative (Negative) Urine Ketones 2+ H (Negative) Urine Blood Negative (Negative) Urine Nitrite Negative (Negative) Urine Bilirubin Negative (Negative) Urine Urobilinogen Negative (Negative) Ur Leukocyte Esterase Negative (Negative) Diagnostic Findings Head CT 07/16/24 10:52 CT OF THE HEAD WITHOUT CONTRAST CLINICAL HISTORY: Confusion. COMPARISON STUDY: No previous studies for comparison. CT DOSE: 875.56 mGy.cm TECHNIQUE: Helical axial images of the head were obtained without IV contrast. Automated exposure control was utilized for the study. A dose lowering technique was utilized adhering to the principles of ALARA. FINDINGS: No acute intracranial hemorrhage, midline shift or mass effect is present. The ventricular system is unremarkable. The basal cisterns are patent. No extra-axial collections are present. There are no findings to suggest acute dural sinus thrombosis or acute territorial infarct. No significant calvarial abnormalities are present. Visualized portions of the sinuses and mastoid air cells are clear. IMPRESSION: No acute intracranial findings. ACT 112: Negative or not required by law. Electronically signed by: Denton Espinosa M.D. 07/16/2024 11:39 AM Supervising Physician Co-Signing Physician Notes 74 yo F w/ PMH of HLD, BRY, GERD, Generalized OA, Obese class I who had recently skin graft x inner lip x bottom on , was put in amoxicillin (last dose , pt reports she completed the course) started developing weakness and tiredness few days before the completion of amoxicillin and when she completed the atb, she developed itchy skin rash all over the body. She was seen at PCP office yesterday and put on hydroxyzine, after 1 tablet of which, within an hour per , she started getting confused and was found using laptop and getting irritated that it was not working (when infact laptop was never turned on). Pt reports feeling more weak, shaky but denies sob, wheezing, abdominal pain or palpitations. Pt denies sore throat, cough, chest pain, acute changes in bowel/bladder/appetite habit. On exam, no throat swelling noted. Labs fairly wnl. CT Head w/ no acute findings. Active problems: Allergic reaction to amoxicillin and hydroxyzine: skin rash and confusion noted w/ amox and hydroxyzine respectively. Both will be added to allergy list. Skin rash/itchiness already getting better. Confusion has stayed, progressive per . Pt oriented and answers most of the time appropriately. Monitor labs, monitor resp status, send resp pathogen panel screen. IVF, Prednisone 40 mg QAM start now, Famotidine 20 mg bid start now. calamine lotion x every 6 hrs prn for itching. pt/ot. Pt to see wax room supervisor as OP, they have been made aware. Demand ischemia: trop flat trend x around 25. Pt w/ no chest pain. EKG w/ no ST or T changes. c/w telemetry for now. On exam: GENERAL: Alert and oriented x3. NAD, on RA. occasionally appears anxious due to current events. HEENT: No pallor, no icterus. Pupils equal, round and reactive to light. Oral mucosa moist. no throat swelling noted. NECK: No JVD, no neck masses. HEART: S1 and S2 heard. Regular rate and rhythm. No murmur, no gallop. RESPIRATORY SYSTEM: Normal AP diameter. No accessory muscle use. No wheezing, no crackles. ABDOMEN: Soft, bowel sounds present, nontender, no distention. CENTRAL NERVOUS SYSTEM: No facial droop. Speech is clear. Obeys simple commands. Moves extremities. EXTREMITIES: No edema, no erythema seen. Skin rash, macular/patchy rash all over the body, scattered, blanchable. no excoriations kohler noted. palms and sole spared. No exfoliations or peeling noted. I have seen and examined the patient and have discussed the case with the provider above. I agree with the assessment and plan as stated. (2) Adverse drug reaction Encounter type: initial encounter Qualified Code(s): T50.905A - Adverse effect of unspecified drugs, medicaments and biological substances, initial encounter
[2024-07-16] MEDS ORDERED: CALAMINE/PRAMOXINE LOTION 180 APPLN/180 ML BTL EXT PRN (14:30)
[2024-07-16] MEDS ORDERED: predniSONE 20 MG TAB PO SCH (14:45)
[2024-07-16] MEDS: FAMOTIDINE 20 MG TAB PO STA (15:19)
[2024-07-16] MEDS: SODIUM CHLORIDE 0.9% 1,000 ML IV SCH (15:19)
[2024-07-16] MEDS: predniSONE 20 MG TAB PO STA (15:19)
[2024-07-16 15:39] LABS: Influenza A virus by PCR Negative (Neg); Influenza B virus by PCR Negative (Neg); RSV by PCR Negative (Neg); SARS CoV2 RNA(COVID-19) Ceph NEGATIVE (Negative)
[2024-07-16] MEDS ORDERED: ACETAMINOPHEN 325 MG TAB PO PRN (17:55)
[2024-07-16] MEDS: FAMOTIDINE 20 MG TAB PO SCH (20:31)
--- NOTE | 2024-07-17 07:18 | Electrocardiogram Report ---
Test Reason : Blood Pressure : */* mmHG Vent. Rate : 72 BPM Atrial Rate : 72 BPM P-R Int : 152 ms QRS Dur : 68 ms QT Int : 392 ms P-R-T Axes : 52 40 55 degrees QTcB Int : 429 ms Normal sinus rhythm Normal ECG No previous ECGs available Confirmed by Todd Vaughan ([id number]) on 07/17/2024 7:18:35 AM Referred By: Confirmed By: Todd Vaughan
[2024-07-17 07:20] LABS: Basophils # (auto) 0.04 K/uL (0.00-0.20); Basophils % (auto) 0.6 %; Eosinophils # (auto) 0.15 K/uL (0.00-0.50); Eosinophils % (auto) 2.4 %; Hemoglobin 12.3 g/dl (12.0-16.0); Immature Granulocytes # (auto) 0.01 K/uL (0.01-0.20); Immature Granulocytes % (auto) 0.2 %; Lymphocytes # (auto) 2.22 K/uL (1.20-3.40); Lymphocytes % (auto) 35.8 %; Mean Corpuscular Hemoglobin 29.1 pg (25.0-34.0); Mean Corpuscular Hgb Conc 34.2 g/dL (32.0-36.0); Mean Corpuscular Volume 85.1 fL (80.0-100.0); Mean Platelet Volume 11.4 fL (9.4-12.4); Monocytes # (auto) 0.47 K/uL (0.11-0.59); Monocytes % (auto) 7.6 %; Neutrophils # (auto) 3.31 K/uL (1.40-6.50); Neutrophils % (auto) 53.4 %; Platelet Count 189 K/uL (130-400); RDW Coefficient of Variation 12.7 % (11.5-14.5); RDW Standard Deviation 38.9 fL (36.4-46.3); Red Blood Count 4.23 M/uL (4.20-5.40)
[2024-07-17 07:39] LABS: BUN Creatinine Ratio 21.2 (10-20); Creatinine Clr Calc Pharmacy 59.3 ml/min; Est GFR (African American) 79.3 ml/min; Est GFR (Non-African American) 68.5 ml/min; Potassium 3.4 mmol/L (3.5-5.1)
[2024-07-17] MEDS: predniSONE 20 MG TAB PO SCH (08:23)
--- NOTE | 2024-07-17 12:41 | Hospitalist Progress Note ---
Date of Service July 17, 2024 Assessment & Plan (1) Confusion: (2) Adverse drug reaction: Plan: 74 y/o female with BRY, dyslipidemia, GERD, and arthritis who presented to the ED today with confusion. CT head was negative for any acute abnormalities UA negative other than 2+ ketones. Pruritic rash started after taking amoxicillin with recent procedure Developed confusion after taking first dose of hydroxyzine started for rash Continue prednisone and famotidine Continue calamine lotion (3) Elevated troponin: Plan: Trop mildly elevated but flat 27.1->24.9 Likely demand ischemia No ST changes noted on EKG RN reported she was unsteady on her feet yesterday but better today Encourage ambulation CK was mildly elevated on admission Continue IVF PT/OT eval Code status: Full code DVT Prophylaxis: Ziggy Hernandez spent a total of 50 minutes coordinating, documenting and providing care for this patient excluding time spent in performance of separately billed services Admission and Anticipated Discharge Date Admission Date: July 16, 2024 Subjective Patient seen and examined Daughter at bedside Reports feeling better Confusion resolved. Mental status back to baseline Reports pruritic rash is improving Denied any headache, dizziness, shortness of breath, chest pain, cough, dysuria, freq, fever, chills, nausea, vomiting Physical Exam Constitutional: + well hydrated; no acute distress Eyes: PERRL, conjunctivae normal, anicteric sclerae ENMT: external ear and nose normal, oropharynx normal Respiratory: normal respiratory effort, lungs clear to auscultation Cardiovascular: Rate/Rhythm: regular rate and regular rhythm S1 S2 Gastrointestinal (Abdomen): normal bowel sounds, soft, nontender, no hepatosplenomegaly Musculoskeletal: No pedal edema Skin: Erythematous papillary rash on extremities and trunk Neurologic: PERRL, EOMI, accommodation nl, no face palsy, no dysarthria Psychiatric: A+Ox3, euthymic affect Results & Data Results & Data Vital Signs (Past 12 Hours) Vital Signs Temp Pulse Pulse Resp BP Pulse Ox O2 Del Method 07/17/24 11:32 36.8 C 65 18 128/71 97 Room Air 07/17/24 08:20 Room Air 07/17/24 07:49 36.9 C 60 18 130/70 98 Room Air 07/17/24 07:18 56 L 07/17/24 03:07 36.8 C 65 18 158/81 H 98 Room Air Laboratory Results Abnormal lab results 07/16/24 07/17/24 Range/Units 13:18 06:48 Hct 36.0 L (37.0-47.0) % Potassium 3.4 L (3.5-5.1) mmol/L BUN/Creatinine Ratio 21.2 H (10-20) Calcium 8.0 L (8.6-10.3) mg/dl Total Creatine Kinase 704 H 429 H (26-192) U/L (2) Adverse drug reaction Encounter type: initial encounter Qualified Code(s): T50.905A - Adverse effect of unspecified drugs, medicaments and biological substances, initial encounter
[2024-07-17] MEDS: ENOXAPARIN INJ 40 MG/0.4 ML SYR SQ SCH (15:46)
[2024-07-18 02:40] VITALS: TEMP 97.9; O2SAT 97
[2024-07-18 06:45] LABS: Hematocrit (blood only) 36.3 % (37.0-47.0); Hemoglobin 12.3 g/dl (12.0-16.0); Mean Corpuscular Hemoglobin 28.8 pg (25.0-34.0); Mean Corpuscular Hgb Conc 33.9 g/dL (32.0-36.0); Mean Platelet Volume 11.8 fL (9.4-12.4); Platelet Count 189 K/uL (130-400); RDW Coefficient of Variation 12.5 % (11.5-14.5); RDW Standard Deviation 38.6 fL (36.4-46.3); Red Blood Count 4.27 M/uL (4.20-5.40); White Blood Count 6.98 K/ul (4.8-10.8)
[2024-07-18 06:49] LABS: BUN Creatinine Ratio 26.1 (10-20); Calcium 8.5 mg/dl (8.6-10.3); Creatinine Clr Calc Pharmacy 57.9 ml/min; Est GFR (African American) 76.1 ml/min; Est GFR (Non-African American) 65.6 ml/min; Magnesium 1.8 mg/dl (1.7-2.4); Phosphorus 2.4 mg/dl (2.5-4.9); Potassium 3.5 mmol/L (3.5-5.1)
[2024-07-18 07:18] VITALS: BP 147/75; RESP 16
[2024-07-18] MEDS: POT PHOSPHATE MONOBASIC W/ SOD TAB PO ONE (08:42)
--- NOTE | 2024-07-18 09:55 | Discharge Summary ---
Date of Service July 18, 2024 Admission HPI Per Admitting Provider This is a 74 y/o female with BRY, dyslipidemia, GERD, and arthritis who presented to the ED today with confusion. Pt underwent a skin graft of her lip on , 07/07, and was given amoxicillin to take after the procedure. within a few days she developed some weakness and fatigue. Then around 07/14, as she was finishing the course of antibiotics, she developed a significant rash all over her body with associated pruritus. On 07/15, she saw her PCP office who attributed the rash to the amoxicillin and prescribed her hydroxyzine for the itching. She took her first dose around 2:30 pm yesterday. Her reports that by 3:30/4:00 pm, she had developed confusion and was very shaky, which is unusual for her. He reports that patient thought she was working on her laptop even though the computer was off, seemed to be hallucinating. She seemed to get a little better so he went to work as scheduled last evening but we he got home around 3 am, he found the patient on the floor, without her pajama pants, having gone to the bathroom on the floor and being unable to get back up. Pt reports that she had gotten very dizzy and thinks that she had lowered herself to the floor to try to help alleviate the sensation but then was too weak to get back up. This morning, she continued to be confused so family called her PCP office who referred her to the ED for evaluation. Patient denies chest pain, palpitations, dyspnea, dysphagia, fevers. Both patient and her report that rash does seem somewhat better today though still present. They do not recall patient taking Benadryl previous. She does take loratadine daily and has never had an issue with this. Admission Exam Per Admitting Provider GENERAL: Alert and oriented x3. NAD, on RA. occasionally appears anxious due to current events. HEENT: No pallor, no icterus. Pupils equal, round and reactive to light. Oral mucosa moist. no throat swelling noted. NECK: No JVD, no neck masses. HEART: S1 and S2 heard. Regular rate and rhythm. No murmur, no gallop. RESPIRATORY SYSTEM: Normal AP diameter. No accessory muscle use. No wheezing, no crackles. ABDOMEN: Soft, bowel sounds present, nontender, no distention. CENTRAL NERVOUS SYSTEM: No facial droop. Speech is clear. Obeys simple commands. Moves extremities. EXTREMITIES: No edema, no erythema seen. Skin rash, macular/patchy rash all over the body, scattered, blanchable. no excoriations kohler noted. palms and sole spared. No exfoliations or peeling noted. Principal Diagnosis Allergic drug reaction Confusion Discharge Exam Constitutional + well hydrated; no acute distress Eyes PERRL, conjunctivae normal, anicteric sclerae ENMT external ear and nose normal, oropharynx normal Respiratory normal respiratory effort, lungs clear to auscultation Cardiovascular Rate/Rhythm: regular rate and regular rhythm Gastrointestinal (Abdomen) normal bowel sounds, soft, nontender, no hepatosplenomegaly Skin Papular rash on trunk and extremities much improved Neurologic PERRL, EOMI, accommodation nl, no face palsy, no dysarthria Psychiatric A+Ox3, euthymic affect Discharge Data Allergies Allergy/AdvReac Type Severity Reaction Status Date / Time amoxicillin Allergy Severe Rash Verified 07/16/24 14:51 hydroxyzine Allergy Severe Confusion Verified 07/16/24 14:51 [id number] Allergy Unknown Uncoded 12/29/02 19:02 N Allergy Unknown Uncoded 12/29/02 19:02 Consultations 07/16/24 13:53 ED Decision to Admit Stat Ordered Studies 07/16/24 10:52 CT head/brain wo con Stat Hospital Course (1) Confusion: (2) Adverse drug reaction: 74 y/o female with BRY, dyslipidemia, GERD, and arthritis who presented to the ED today with confusion. CT head was negative for any acute abnormalities UA negative other than 2+ ketones. Pruritic rash started after taking amoxicillin with recent procedure Developed confusion after taking first dose of hydroxyzine started for rash Was treated with prednisone, pepcid Confusion resolved Rash is improving Discharged on 2 more days of pepcid and prednisone Educated on amoxicillin allergy She reports she has appt with Allergologist (3) Elevated troponin: Trop mildly elevated but flat 27.1->24.9 Likely demand ischemia No ST changes noted on EKG Total Time Total Time Spent Total Time Spent (In Minutes): 35 Total Time Includes: Examination of the Patient, Discharge Planning and Medicat ion Reconciliation Discharge Plan Discharge Items Patient Disposition: Home - Self-Care Reason For Visit: CONFUSION Discharge Diagnosis: Drug reaction Confusion Activity: Resume your previous activity Non-emergency contact: Primary Care Provider Call non-emergency contact if: you have any medication questions Follow-up/Referrals: Hemal Bates MD [Primary Care Provider] - Diet: Regular Addtl Attending Provider Instructions: Mrs Miguel. You presented to the hospital with confusion. You also had pruritic rash from recent antibiotics. You were managed for these and confusion resolved. Please notify your Primary Doctor about allergy to amoxicillin and side effect of hydroxyzine. Please take prednisone and pepcid for 2 more days as prescribed. Please ensure follow up with your Primary Doctor. It was a pleasure taking care of you. Pending Studies at Discharge: No Stand-Alone Forms: My [facility] [place] [employer], Smoking Cessation Medications and DC Order Prescriptions: New prednisone 20 mg Tablet 20 mg PO DAILY 2 Days Qty: 2 0RF famotidine 20 mg Tablet 20 mg PO BID 2 Days Qty: 4 0RF Continued loratadine 10 mg Tablet 10 mg PO DAILY Centrum Silver Women 8 mg iron-400 mcg-50 mcg Tablet 1 tab PO DAILY Discontinued hydroxyzine HCl 10 mg tablet 10 mg PO Q8H PRN (Reason: Itching) Discharge Orders: Discharge Order (Routine); Ordered 07/18/24 Ordered By: Annette Pruitt/Other Patient Handouts: ED Medicine Reaction: Allergic Admission Data Admit Date/Time: 07/16/24 14:29 Attending Provider: Annette Andre I. Admit Provider: Heidi Jara Primary Care Provider: Hemal Bates Other Providers: Heidi Jara Other Interventions: Discharge Summary Assessment (RN) Last Done: 07/18/24 10:47
[2024-07-18 10:54] VITALS: PULSE 68
== END 2024-07-18 11:52 | disposition home or self-care (01) | DRG 948 ==
LOC: ED 10:40 → 2N 14:29 → SUATTDRO 14:29 → 2N 17:26